=== PATIENT | male | born 1985 | race Caucasian/White ===

== ENCOUNTER 2021-12-15 12:57 | Emergency (ER) | payer MEDICARE, OTHER ==
[~2021-12-15] VITALS: Ht 182.9 cm; Wt 76.0 kg
[2021-12-15] MEDS ORDERED: AMPICILLIN SOD/SULBACTAM NA 3 G in SODIUM CHLORIDE 0.9% 100 ML IV SCH (15:00)
[2021-12-15 15:23] LABS: BASOPHILS % 0.5 % (0.0-2.0); HEMATOCRIT. 44.4 % (42.0-52.0); HEMOGLOBIN. 14.7 g/dL (14.0-18.0); MEAN CORPUSCULAR VOLUME 93.7 fL (80.0-94.0); MEAN PLATELET VOLUME 8.1 fl (7.4-10.4); MONOCYTES % 9.5 % (2.0-8.0); PLATELET 237 x1000/uL (130-400); RED BLOOD CELL COUNT 4.74 mill/uL (4.7-6.1); RED CELL DISTRIBUTION WIDTH 14.3 % (11.6-14.6)
[2021-12-15 15:31] LABS: PROTHROMBIN TIME 10.9 sec (9.6-11.0)
[2021-12-15 15:35] LABS: CHLORIDE 103 mEq/L (98-107)
[2021-12-15] MEDS ORDERED: IOHEXOL-300 100 ML BOTTLE ONE (20:42)
[2021-12-16] MEDS: AMPICILLIN SOD/SULBACTAM NA 3 G in SODIUM CHLORIDE 0.9% 100 ML IV SCH ×4 (00:16→18:22)
[2021-12-16] MEDS ORDERED: VANCOMYCIN 1G PREMIX 200 ML IV SCH (13:00)
[2021-12-16] MEDS ORDERED: DEXT 5%/0.45% NACL KCL 20MEQ/L 1,000 ML IV ONE (14:45)
[2021-12-17] MEDS: AMPICILLIN SOD/SULBACTAM NA 3 G in SODIUM CHLORIDE 0.9% 100 ML IV SCH ×4 (00:22→18:33)
[2021-12-17] MEDS ORDERED: MORPHINE SULFATE 4 MG/ML CPJ (NOT FOR IM USE) IV NR (06:00)
[2021-12-18] MEDS: AMPICILLIN SOD/SULBACTAM NA 3 G in SODIUM CHLORIDE 0.9% 100 ML IV SCH ×4 (00:45→19:20)
[2021-12-19 01:21] VITALS: BP 127/93
== END 2021-12-19 01:20 | disposition short-term general hospital (02) ==
LOC: ER 12:57 → EDBEDREQ 16:43 → EDBEDREQSVC 16:43 → CANBEDREQ 12-16 08:04 → ER 12-19 01:20
DX: R68.84 Jaw pain (principal); F41.9 Anxiety disorder, unspecified; F32.9 Major depressive disorder, single episode, unspecified; Z20.822 Contact with and (suspected) exposure to COVID-19
CPT/HCPCS: 36415; 70486; 70492; 80053; 83605; 85025; 85610; 87040; 87426; 96365; 96366; 96367; 99291; C9803; J0295; J7050; Q9967

== ENCOUNTER 2024-02-11 17:08 | Emergency (ER) | payer OTHER ==
[~2024-02-11] VITALS: Ht 180.3 cm; Wt 79.0 kg
[2024-02-11 17:10] VITALS: O2SAT 99
[2024-02-12 01:18] VITALS: BP 133/78; PULSE 86; RESP 17; TEMP 36.55848; O2SAT 99
== END 2024-02-12 01:19 | disposition home or self-care (01) ==
LOC: ER 17:08
DX: T18.5XXA Foreign body in anus and rectum, initial encounter (principal); K43.9 Ventral hernia without obstruction or gangrene; W44.B9XA Other plastic object entering into or through a natural orifice, initial encounter; Y93.89 Activity, other specified; Y92.89 Other specified places as the place of occurrence of the external cause; Y99.8 Other external cause status
CPT/HCPCS: 74176; 99284

== ENCOUNTER 2024-03-12 13:26 | Emergency (ER) | payer SELFPAY ==
[~2024-03-12] VITALS: Ht 182.9 cm; Wt 55.0 kg
[2024-03-12 13:29] VITALS: BP 140/86; PULSE 90; RESP 16; TEMP 97.7; O2SAT 98
[2024-03-12] MEDS ORDERED: ACETAMINOPHEN 325MG TABLET PO STA (13:37)
[2024-03-12 14:07] LABS: BASOPHILS % 0.9 % (0.0-2.0); EOSINOPHILS % 1.1 % (0.0-5.0); HEMATOCRIT. 38.9 % (42.0-52.0); MEAN CORPUSCULAR HEMOGLOBIN 30.7 pg (28.0-32.0); MEAN CORPUSCULAR HGB CONC 33.5 g/dL (31.0-37.0); MEAN CORPUSCULAR VOLUME 91.8 fL (80.0-94.0); MEAN PLATELET VOLUME 7.7 fl (7.4-10.4); MONOCYTES % 8.4 % (2.0-8.0); NEUTROPHILS % 71.6 % (40.0-76.0); PLATELET 292 x1000/uL (130-400); RED BLOOD CELL COUNT 4.24 mill/uL (4.7-6.1); RED CELL DISTRIBUTION WIDTH 14.9 % (11.6-14.6); WHITE BLOOD COUNT 8.3 x1000/uL (4.5-11.0)
[2024-03-12 14:13] LABS: CHLORIDE 108 mEq/L (98-107); POTASSIUM 3.9 mEq/L (3.5-5.1); SODIUM 143 mEq/L (136-145)
[2024-03-12 14:14] LABS: CARBON DIOXIDE 29 mEq/L (21-32)
[2024-03-12 14:15] LABS: CALCIUM 9.3 mg/dL (8.7-10.4)
[2024-03-12 14:19] LABS: CREATININE 0.9 mg/dL (0.6-1.3)
[2024-03-12 14:20] LABS: GLUCOSE 83 mg/dL (70-105); UREA NITROGEN BLOOD 11 mg/dL (9-23)
[2024-03-12 14:21] LABS: ALANINE AMINOTRANSFERASE 33 IU/L (10-49); ASPARTATE AMINOTRANSFERASE 29 IU/L (<34)
[2024-03-12 14:22] LABS: ALBUMIN 4.3 g/dL (3.2-4.8); BILIRUBIN TOTAL 0.3 mg/dL (0.1-1.0)
[2024-03-12 14:39] LABS: BILIRUBIN DIRECT < 0.1 mg/dL (<=3.0)
[2024-03-12] MEDS ORDERED: IBUP-2029 MT (15:50)
== END 2024-03-12 16:55 | disposition home or self-care (01) ==
LOC: ER 13:28
DX: K43.9 Ventral hernia without obstruction or gangrene (principal)
CPT/HCPCS: 36415; 74176; 80048; 80076; 85025; 99284

== ENCOUNTER 2024-03-12 17:53 | Emergency (ER) | payer OTHER ==
[~2024-03-12] VITALS: Ht 182.9 cm; Wt 55.0 kg
[~2024-03-12 17:53] MED LIST: IBUP-2029 MT
[2024-03-12 17:55] VITALS: BP 144/96; RESP 16; TEMP 98.5; O2SAT 100
[2024-03-12 18:14] VITALS: PULSE 98; O2SAT 100
== END 2024-03-12 19:14 | disposition left against medical advice (07) ==
LOC: ER 17:53
DX: R44.3 Hallucinations, unspecified (principal)
CPT/HCPCS: 99281